=== PATIENT | male | born 1945 | race Hispanic/Latino ===

== ENCOUNTER 2016-11-24 06:48 | Day surgery (SDC) | payer MEDICARE, OTHER ==
[2016-11-15 10:31] VITALS: BMI 27.5
--- NOTE | 2016-11-23 23:19 | HP ---
REASON FOR ADMISSION: Left heart cath, possible angioplasty. BRIEF CLINICAL HISTORY: This is a 71-year-old male with a past medical history significant for chronic atrial fibrillation, hypertension, chronic leg edema, possible prostate CA, underwent stress test that shows apical ischemia, so patient is scheduled for elective cardiac cath, possible angioplasty. PAST MEDICAL HISTORY: Significant for chronic atrial fibrillation, lymphedema, and prostate CA, had underwent biopsy. RECENT CARDIAC WORKUP: As follows; 1. The patient had a stress test 08/31/2016 that is Myoview stress test. Exercise duration was 4 minutes and 23 seconds on the treadmill and nuclear scan was read as abnormal stress myocardial perfusion study, reversible small apical distal lateral defect suspicious for ischemia, ejection fraction 70%. When compared from the previous study 12/27/2012, the defect appears new. 2. The patient underwent echocardiography dated 08/31/2016 that showed no mitral valve prolapse, no IHSS. No thrombus. No vegetation. Mild LVH. Ejection fraction 57%. Mild mitral regurgitation, trace tricuspid regurgitation, small pericardial effusion. CURRENT MEDICATIONS: The patient is taking metoprolol succinate 25 mg b.i.d., Colace 100 b.i.d, Pradaxa 150 b.i.d. last dose 11/16/2016, calcium polycarbophil that is a fiber tablet 2 tablets daily. ALLERGIES: NO KNOWN DRUG ALLERGIES. REVIEW OF SYSTEMS: As per HPI. PHYSICAL EXAMINATION: VITAL SIGNS: Height of the patient is 6 feet, weight of the patient is 203 pounds, body mass index is 30 kg/m2. Temperature afebrile, heart rate 80 and blood pressure 120/70. HEENT: PERRLA. Extraocular muscles intact. NECK: Supple. No carotid bruits or thyromegaly. CHEST: Clear to auscultation. HEART: S1 and S2 regular. ABDOMEN: Soft. EXTREMITIES: Clubbing and cyanosis negative. LABORATORY DATA: Blood workup pending. IMPRESSION: Abnormal stress test, chronic atrial fibrillation, apical distal ischemia and prostate carcinoma, may need surgery. RECOMMENDATIONS: We will get blood work up. Risks, benefit and alternatives discuss with patient, patient agreed. We will procedure for cardiac catheterization. Patient is off Pradaxa for more then 3 days. Further recommendations after cardiac catheterization. Discussed bernice Gaines if the patient needs a stent, we will put drug-coated stent and can patient can come off after 3-6 month for prostate surgery. We will follow with you. Thank your Dr. Gaines for providing the opportunity in taking care of the patient, Christiano Sifuentes. Volodymyr Melissa MD
[2016-11-24 07:34] LABS: BASO # 0.01 K/mm3 (0.0-2.0); BASO % 0.2 % (0.0-3.0); EOS # 0.3 (0.0-0.7); GRAN # 4.17 (1.4-6.5); GRAN % 66.9 % (50.0-68.0); HEMATOCRIT 39.1 % (42.0-52.0); LYMPH # 1.1 (1.2-3.4); LYMPH % 17.4 % (22.0-35.0); MEAN CELL VOLUME 95.1 fl (80.0-105.0); MEAN CORPUSCULAR HEMOGLOBIN 33.8 pg (25.0-35.0); MEAN CORPUSCULAR HGB CONC 35.5 g/dl (31.0-37.0); MONO # 0.7 (0.1-0.6); MONO % 10.5 % (1.0-6.0); RED CELL DISTRIBUTION WIDTH 12.9 % (11.5-14.5); WHITE BLOOD COUNT 6.2 10^3/ul (4.5-11.0)
[2016-11-24] MEDS ORDERED: Lidocaine 2% Inj (20ml) ONE (07:40)
[2016-11-24] MEDS ORDERED: Nitroglycerin 50mg in D5W 50 MG/250 ML BOTTLE IV ONE (07:41)
[2016-11-24 07:44] LABS: BLOOD UREA NITROGEN 10 mg/dL (7-21); CALCIUM 9.2 mg/dL (8.4-10.5); CARBON DIOXIDE 28 mmol/L (21-33); CHLORIDE 102 mmol/L (98-107); CHOLESTEROL 155 mg/dL (130-200); GFR AFRICAN-AMERICAN > 60; GLUCOSE,RANDOM 119 mg/dL (70-110); POTASSIUM 4.3 mmol/L (3.6-5.0); SODIUM 139 mmol/L (132-148)
[2016-11-24 07:45] LABS: INR 1.04 (0.93-1.08); PARTIAL THROMBOPLASTIN TIME 40.9 Seconds (23.7-30.8)
[2016-11-24] MEDS ORDERED: Phenylephrine 10 mg/ml Inj ONE (07:50)
[2016-11-24 07:54] VITALS: RESP 18
[2016-11-24] MEDS ORDERED: Midazolam 2 MG/2 ML VIAL ONE (08:52)
[2016-11-24] MEDS ORDERED: Bacitracin 500 Units/gm Oint Foilpak UD TOP ONE (09:42)
[2016-11-24] MEDS ORDERED: Sodium Chloride 0.9% 1,000 ML IV SCH (09:45)
[2016-11-24 10:08] VITALS: TEMP 97.7
[2016-11-24 10:40] VITALS: O2SAT 97
--- NOTE | 2016-11-24 10:57 | CARD ---
APPROVED REPORT EKG Measurement Heart [id number] <Conclusion> Atrial fibrillation with a competing junctional pacemaker Abnormal ECG
[2016-11-24] MEDS ORDERED: Bacitracin 500 Units/gm Oint Foilpak UD ONE (11:53)
[2016-11-24 12:08] VITALS: BP 134/62; PULSE 78
--- NOTE | 2016-11-24 15:25 | CARD ---
APPROVED REPORT Procedure(s) performed: Left Heart Catheterization HISTORY The patient is a 71 year-old male with a history of : most recent EF: 70%. (EF Method: RADIONUCLIDE), peripheral vascular disease, tobacco history() : The patient is a former smoker , hypertension , Hx of ch A Fib on Pradaxa, Hx of laryngeal Ca S/p surgery and tracheostomy and now has had an abnormal stresstest as a pre-op for possoible prostate surgery.. INDICATION The indication(s) include : positive stress test. CASE TECHNIQUE The patient was brought electively to the Cardiac Catheterization Laboratory in a fasting state and was prepped and draped in a sterile manner. The left wrist was infiltrated with 2% Lidocaine subcutaneous anesthesia. A 6 Fr Glidesheath (Radial) sheath was inserted into the left radial artery without difficulty. Coronary angiography was performed using coronary diagnostic catheters. The left coronary system was accessed and visualized with a Diagnostic ,5 Fr JL 3.5 catheter. The right coronary system was accessed and visualized with a Diagnostic ,5 Fr AL 1 catheter. The left ventricle was accessed and visualized with a 5 Fr Pigtail 145 (Angled) catheter. Left ventriculogram was performed in ERNST projection. Closure device was deployed with a Fr TR Band (Large) without any complications. The patient tolerated the procedure well and there were no complications associated with the procedure. Vessel Analysis The patient's coronary anatomy is co-dominant. The left main coronary artery is a large size vessel with diffuse calcification noted throughout this vessel and without significant stenosis. There is a 10-20% stenosis in the distal segment. The left main bifurcates to the left anterior descending and circumflex. The left anterior descending artery is a medium size vessel with diffuse calcification noted throughout this vessel and without significant stenosis. The first diagonal branch is a small size vessel with diffuse calcification noted throughout this vessel and without significant stenosis. The second diagonal branch is a medium size vessel with diffuse calcification noted throughout this vessel and without significant stenosis. The circumflex artery is a medium size vessel with diffuse calcification noted throughout this vessel and without significant stenosis. The first obtuse marginal branch is a medium size vessel with diffuse calcification noted throughout this vessel and without significant stenosis. The second obtuse marginal branch is a medium size vessel with diffuse calcification noted throughout this vessel and without significant stenosis. The third obtuse marginal branch is a small size vessel with diffuse calcification noted throughout this vessel and without significant stenosis. The left posterior descending artery is a small size vessel with diffuse calcification noted throughout this vessel and without significant stenosis. The right coronary artery is a large size vessel with diffuse calcification noted throughout this vessel and without significant stenosis. There is a 30-40% stenosis in the proximal segment. 40 -50% stenosis in mid segment. The right posterior descending artery is a medium size vessel with diffuse calcification noted throughout this vessel and without significant stenosis. There is a 55% stenosis in the mid segment. Left Ventricle The left ventricle is Borderline enlarged in size with Normal contractility. There was no cardiomyopathy. The left ventricular ejection fraction is estimated to be 55%. The left ventricular end diastolic pressure is 20-25 mmHg. There was no gradient across the aortic valve upon pullback. Conclusion Non Obstructive CAD limited to Mid R PDA 55% stenosis Preserved LV FX. EF-55%, EDp-20-25% with respiratory variation. Off note: it is important to mention Pleural Plaque noted in both side of lungs field and Diaphragmatic surface c/w possible previous asbestos exposure. Recommendations Aggressive Medical TherapyCardiac Risk Reduction Program Weight Loss Reduction Program Resume Pradaxa from tomorrow. Pt is cleared from Cardiology point of View to go for prostate surgery when needed. Cc; Diya manjarrez / diya.
== END 2016-11-24 13:30 | disposition home or self-care (01) ==
LOC: CATH 06:48
PROVIDERS: ATTEND Internal Medicine Cardiovascular Disease
DX: I25.10 Atherosclerotic heart disease of native coronary artery without angina pectoris (principal); Z01.818 Encounter for other preprocedural examination; C61 Malignant neoplasm of prostate; I10 Essential (primary) hypertension; I48.2 Chronic atrial fibrillation; I89.0 Lymphedema, not elsewhere classified; I73.9 Peripheral vascular disease, unspecified; Z85.21 Personal history of malignant neoplasm of larynx; Z87.891 Personal history of nicotine dependence
CPT/HCPCS: 36415; 80048; 80061; 85025; 85610; 85730; 86850; 86900; 93005; 93458; 99152; C1769; C1887 ×2; J1644 ×2; J2250; J3010; J7040; Q9967

== ENCOUNTER 2017-12-05 12:32 | Emergency (ER) | payer MEDICARE, OTHER ==
[2017-12-05 12:33] VITALS: BMI 27.5
[2017-12-05 13:29] VITALS: TEMP 97; O2SAT 98
[2017-12-05] MEDS ORDERED: Sodium Chloride 0.9% 1,000 ML IV STA (13:54)
[2017-12-05] MEDS ORDERED: Iohexol 240 (50 ml) ONE (14:17)
--- NOTE | 2017-12-05 14:21 | ED PDOC ---
Arrival/HPI - General Chief Complaint: Abdominal Pain Time Seen by Provider: 12/05/17 12:54 Historian: Patient, Family - History of Present Illness Narrative History of Present Illness (Text): 72y/o M w/ h/o HTN & A-Fib(formerly on Pradaxa) comes to ED for evaluation of changes in bowel movement for 1 week. Per patient's , patient has had watery fecal matter and unable to have a bowel movement. She also reports blood in the fecal matter and noting the abdomen had become distended and bloated. Per patient, he denies any fever, chills, chest pain, shortness of breath, abdominal pain, nausea, vomiting, dizziness or bruising. Of note, patient's states she stopped patient's Pradaxa for the past 2 days due to the blood per rectum. PMD: Dr. Gaines(general surgery) Symptom Onset: Gradual Symptom Course: Worsening Severity Level: Mild Context: Home Past Medical History - Provider Review Nursing Documentation Reviewed: Yes - Travel History Have you recently traveled outside [place] w/in the past 3 mons?: No - Infectious Disease Hx of Infectious Diseases: None - Tetanus Immunization Tetanus Immunization: Unknown - Cardiac Hx Pacemaker: No - Pulmonary Hx Respiratory Disorders: No - Neurological Hx Paralysis: No - HEENT Hx HEENT Disorder: No (WEARSW RX GLASSES) - Renal Hx Renal Disorder: No - Endocrine/Metabolic Hx Endocrine Disorders: No - Hematological/Oncological Hx Blood Transfusions: No Hx Blood Transfusion Reaction: No - Integumentary Hx Dermatological Disorder: Yes Hx Basal Cell Carcinoma: Yes (BASAL CELL SQUAMOUS 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 WITH RADIATION TX AND HYPERBARIC TX.) - Musculoskeletal/Rheumatological Hx Musculoskeletal Disorders: No - Psychiatric Hx Emotional Abuse: No Hx Physical Abuse: No Hx Substance Use: No - Surgical History Other/Comment: skin chantel on leg, larngectomy - Anesthesia Hx Anesthesia Reactions: No Hx Malignant Hyperthermia: No - Suicidal Assessment Feels Threatened In Home Enviroment: No Family/Social History - Physician Review Nursing Documentation Reviewed: Yes Family/Social History: No Known Family HX Smoking Status: Former Smoker Hx Alcohol Use: Yes (3-4 beers) Hx Substance Use: No Hx Substance Use Treatment: No Allergies/Home Meds Allergies/Adverse Reactions: Allergies No Known Allergies Allergy (Verified 06/11/14 09:44) Home Medications: Home Meds Medication Instructions Recorded Confirmed Dabigatran [Pradaxa] 150 mg PO BID 08/31/16 11/24/16 Metoprolol Succinate 25 mg PO BID 08/31/16 11/24/16 Calcium Polycarbophil [Fiber-Tabs] 2 cap PO DAILY 11/15/16 11/24/16 Docusate [Colace] 100 mg PO DAILY 11/15/16 11/24/16 Review of Systems - Physician Review All systems were reviewed & negative as marked: Yes - Review of Systems Constitutional: absent: Fevers Respiratory: absent: SOB Cardiovascular: absent: Chest Pain, Palpitations Gastrointestinal: Stool Changes (loose watery fecal matter), Other (blood per rectum). absent: Abdominal Pain, Nausea, Vomiting, Appetite Changes, Food Intolerance Genitourinary Male: absent: Dysuria, Frequency, Hematuria Skin: absent: Rash Neurological: absent: Headache, Dizziness Physical Exam Vital Signs Temp Pulse Resp BP Pulse Ox 12/05/17 13:28 97.0 F L 75 20 104/58 L 98 Temperature: Afebrile Blood Pressure: Normal Pulse: Regular Respiratory Rate: Normal Appearance: Positive for: Well-Appearing, Non-Toxic, Comfortable Pain Distress: None Mental Status: Positive for: Alert and Oriented X 3 - Systems Exam Head: Present: Atraumatic, Normocephalic Pupils: Present: PERRL Extroacular Muscles: Present: EOMI Conjunctiva: Present: Normal Mouth: Present: Moist Mucous Membranes Neck: Present: Normal Range of Motion, Other (patient s/p laryngectomy and currently has tracheostomy ) Respiratory/Chest: Present: Clear to Auscultation, Good Air Exchange. No: Respiratory Distress, Accessory Muscle Use Cardiovascular: Present: Regular Rate and Rhythm, Normal S1, S2. No: Murmurs Abdomen: Present: Distention, Other (firmness noted to left lower quadrant). No : Tenderness, Normal Bowel Sounds (+ hyperactive bowel sounds), Peritoneal Signs Back: Present: Normal Inspection Upper Extremity: Present: Normal Inspection, Erythema, Other (no ecchymosis to extremities noted). No: Cyanosis, Edema Lower Extremity: Present: Normal Inspection, Normal ROM, Other (no ecchymosis noted). No: Edema Neurological: Present: GCS=15, CN II-XII Intact, Speech Normal Skin: Present: Warm, Dry, Normal Color. No: Rashes Psychiatric: Present: Alert, Oriented x 3, Normal Insight, Normal Concentration Medical Decision Making ED Course and Treatment: Impression: 72yo male with hx of A-Fib, hypertension, comes w/ c/o changes in bowel movement and blood in stool x 2 days Differential Diagnosis included but are not limited to: Large bowel obstruction Volvulus Colitis Strangulated/incarcerated hernia Plan: -- Labs -- CT Abdomen/Pelvis w/ PO & IV contrast -- Chest X-ray -- Urinalysis -- IV Fluids 1L -- Reassess and disposition Prior Visits: Notes and results from previous visits were reviewed. Patient was last seen in this Emergency room on 06/11/14 due to elevated blood pressure and was discharged home. Progress Notes: 12/05/17 18:15 Labs reviewed with no outstanding results. Dr. Gaines at the bedside updating patient on high likelihood of obstruction and states Dr. Smallwood(GI) will be performing a colonscopy on the patient the following day. Patient is amenable to staying for admission. - Lab Interpretations Lab Results: 12/05/17 14:20 12/05/17 14:20 Lab Results 12/05/17 14:20: Sodium 137, Chloride 100, Potassium 4.3, Carbon Dioxide 27, Anion Gap 14, BUN 17, Creatinine 0.8, Est GFR ( Amer) > 60, Est GFR (Non- Af Amer) > 60, Random Glucose 92, Calcium 9.1, Total Bilirubin 0.5, AST 27, ALT 21, Alkaline Phosphatase 105, Troponin I < 0.01, Total Protein 6.9, Albumin 3.9 , Globulin 3.0, Albumin/Globulin Ratio 1.3, Lipase 56 12/05/17 14:20: pO2 30, VBG pH 7.31 L, VBG pCO2 61.0 H, VBG HCO3 30.7 H, VBG Total CO2 32.6 H, VBG O2 Sat (Calc) 54.5, VBG Base Excess 2.8 H, VBG Potassium 4.5, Sodium 137.0, Chloride 103.0, Glucose 93, Lactate 1.7, FiO2 21.0, Venous Blood Potassium 4.5 12/05/17 14:20: PT 12.0, INR 1.05, APTT 48.3 H 12/05/17 14:20: WBC 6.5, RBC 3.64, Hgb 11.9 L, Hct 34.5 L, MCV 94.8, MCH 32.7, MCHC 34.5, RDW 14.2, Plt Count 238, MPV 9.0, Gran % 65.3, Lymph % (Auto) 24.3, [place] % (Auto) 8.2 H, Eos % (Auto) 2.0, Baso % (Auto) 0.2, Gran # 4.25, Lymph # ( Auto) 1.6, [place] # (Auto) 0.5, Eos # (Auto) 0.1, Baso # (Auto) 0.01, ESR 59 H - RAD Interpretation Narrative RAD Interpretations (Text): 12/05/17 15:31 Chest X-ray IMPRESSION: Moderate cardiomegaly and mild pulmonary venous congestion. No acute findings. 12/05/17 18:13 CT Abdomen/Pelvis IMPRESSION: Thick-walled urinary bladder. Correlate clinically for cystitis. Recommend correlation with urinalysis. The appendix is not identified. No secondary signs of acute appendicitis. Sub cm mesenteric lymph nodes, nonspecific. 10 mm nonspecific lymph node near the aleksandr hepatis adjacent to the pancreas. Indeterminate 1.3 x 2.0 cm left adrenal gland nodule. Heterogeneous enlarged prostate gland. Recommend correlation with PSA. Evidence pericardial calcification. Recommend correlation with cardiac status including echocardiogram if indicated. Additional findings as above Radiology Orders: 12/05/17 13:52 ABD PELVIS PO & IV CONTRAST [CT] Stat CHEST PORTABLE [RAD] Stat - EKG Interpretation EKG Interpretation (Text): 12/05/17 15:[address] elevations QT interval normal Interpreted by ED Physician: Yes Type: 12 lead EKG - Medication Orders Current Medication Orders: Discontinued Medications Sodium Chloride (Sodium Chloride 0.9%) 1,000 mls @ 999 mls/hr IV .Q1H1M STA Stop: 12/05/17 14:54 Last Admin: 12/05/17 15:04 Dose: 999 mls/hr eMAR Start Stop Document 12/05/17 15:04 MR (Rec: 12/05/17 15:06 MR [id number]) Intravenous Solution Start Date 12/05/17 Start Time 14:40 End Date 12/05/17 End time 15:40 Total Infusion Time 60 - Scribe Statement The provider has reviewed the documentation as recorded by the Collins Reece Provider Stephanibe Attestation: All medical record entries made by the Stephanibmarco were at my direction and personally dictated by me. I have reviewed the chart and agree that the record accurately reflects my personal performance of the history, physical exam, medical decision making, and the department course for this patient. I have also personally directed, reviewed, and agree with the discharge instructions and disposition. Disposition/Present on Arrival - Present on Arrival Any Indicators Present on Arrival: No History of DVT/PE: No History of Uncontrolled Diabetes: No Urinary Catheter: No History of Decub. Ulcer: No History Surgical Site Infection Following: None - Disposition Have Diagnosis and Disposition been Completed?: Yes Diagnosis: Volvulus Disposition: HOSPITALIZED Disposition Time: 18:15 Patient Plan: Admission Patient Problems: Current Active Problems Problem Status Onset Volvulus Acute Condition: STABLE Referrals: Tavo Gaines MD [Primary Care Provider] - Follow up with primary Forms: [employer] ([place])
[2017-12-05 14:26] LABS: VENOUS BLOOD GAS BASE EXCESS 2.8 mmol/L (0.0-2.0); VENOUS BLOOD GAS PO2 30 mm/Hg (30-55); VENOUS BLOOD PH 7.31 (7.32-7.43)
[2017-12-05 14:27] LABS: BASO # 0.01 K/mm3 (0.0-2.0); BASO % 0.2 % (0.0-3.0); EOS # 0.1 (0.0-0.7); GRAN # 4.25 (1.4-6.5); GRAN % 65.3 % (50.0-68.0); HEMOGLOBIN 11.9 g/dL (14.0-18.0); LYMPH # 1.6 (1.2-3.4); LYMPH % 24.3 % (22.0-35.0); MEAN CELL VOLUME 94.8 fl (80.0-105.0); MEAN CORPUSCULAR HEMOGLOBIN 32.7 pg (25.0-35.0); MEAN CORPUSCULAR HGB CONC 34.5 g/dl (31.0-37.0); MONO # 0.5 (0.1-0.6); MONO % 8.2 % (1.0-6.0); RBC 3.64 10^6/uL (3.5-6.1); RED CELL DISTRIBUTION WIDTH 14.2 % (11.5-14.5); WHITE BLOOD COUNT 6.5 10^3/ul (4.5-11.0)
[2017-12-05 14:37] LABS: ALB/GLOB RATIO 1.3 (1.1-1.8); ALBUMIN 3.9 g/dL (3.0-4.8); ALT/SGPT 21 U/L (7-56); AST/SGOT 27 U/L (17-59); BLOOD UREA NITROGEN 17 mg/dL (7-21); CALCIUM 9.1 mg/dL (8.4-10.5); GFR NON-AFRICAN AMERICAN > 60; LIPASE 56 U/L (23-300)
[2017-12-05 14:39] LABS: INR 1.05; PARTIAL THROMBOPLASTIN TIME 48.3 Seconds (25.1-36.5)
[2017-12-05 14:48] LABS: TROPONIN I < 0.01 ng/mL
--- NOTE | 2017-12-05 15:13 | RAD ---
Date of service: 12/05/2017 HISTORY: sob COMPARISON: 05/04/2017. FINDINGS: LUNGS: The lungs are well inflated. There is mild pulmonary venous congestion. No focal consolidation. PLEURA: No significant pleural effusion identified, no pneumothorax apparent. CARDIOVASCULAR: There is moderate cardiomegaly. OSSEOUS STRUCTURES: No significant abnormalities. VISUALIZED UPPER ABDOMEN: Normal. OTHER FINDINGS: None. IMPRESSION: Moderate cardiomegaly and mild pulmonary venous congestion. No acute findings.
[2017-12-05] MEDS ORDERED: Iodixanol 320 mg/ml 150 ml Bottle IV ONE (16:47)
--- NOTE | 2017-12-05 18:01 | CT ---
PROCEDURE: CT Abdomen and Pelvis with oral and IV contrast. HISTORY: abdominal pain COMPARISON: None available TECHNIQUE: Contiguous axial images of the abdomen and pelvis. Oral and IV contrast was administered. Coronal and Sagittal reformats generated. Contrast dose: 147 cc Visipaque 320 Radiation dose: Total exam DLP = 865.27 mGy-cm. This CT exam was performed using one or more of the following dose reduction techniques: Automated exposure control, adjustment of the mA and/or kV according to patient size, and/or use of iterative reconstruction technique. FINDINGS: LOWER THORAX: No visible consolidation, pleural effusion, or pneumothorax. Evidence pericardial calcification. LIVER: Unremarkable. GALLBLADDER AND BILE DUCTS: Unremarkable. PANCREAS: Atrophy. SPLEEN: Unremarkable. ADRENALS: Indeterminate 1.3 x 2.0 cm left adrenal gland nodule. The right adrenal gland appears unremarkable. KIDNEYS AND URETERS: The kidneys enhance symmetrically. No hydronephrosis or obstructing renal calculus. BLADDER: Thick-walled incompletely distended urinary bladder limits evaluation. REPRODUCTIVE: Heterogeneous enlarged prostate containing calcifications. APPENDIX: The appendix is not identified. No secondary signs of acute appendicitis. BOWEL: The stomach is nondistended. The bowel loops appear within normal limits of caliber without evidence of intestinal obstruction. PERITONEUM: No significant free fluid. No definite free air. LYMPH NODES: Sub cm mesenteric lymph nodes, nonspecific. 10 mm nonspecific lymph node near the aleksandr hepatis adjacent to the pancreas. VASCULATURE: No aortic aneurysm. BONES: Osseous demineralization. Degenerative changes. OTHER FINDINGS: None. IMPRESSION: Thick-walled urinary bladder. Correlate clinically for cystitis. Recommend correlation with urinalysis. The appendix is not identified. No secondary signs of acute appendicitis. Sub cm mesenteric lymph nodes, nonspecific. 10 mm nonspecific lymph node near the aleksandr hepatis adjacent to the pancreas. Indeterminate 1.3 x 2.0 cm left adrenal gland nodule. Heterogeneous enlarged prostate gland. Recommend correlation with PSA. Evidence pericardial calcification. Recommend correlation with cardiac status including echocardiogram if indicated. Additional findings as above
[2017-12-05] MEDS ORDERED: Lactated Ringer's 1,000 ML IV SCH (18:45)
--- NOTE | 2017-12-05 20:27 | CARD ---
APPROVED REPORT Date of service: 12/05/2017 EKG Measurement Heart [id number] <Conclusion> Atrial fibrillation Abnormal ECG
--- NOTE | 2017-12-05 21:00 | CP.PCM.HP ---
History of Present Illness - History of Present Illness History of Present Illness: General Surgery Dr. Gaines 72 y/o M w/ PMHx of porphyria, BPH, HTN, CAD (Cath 2016) presents to the ED w/ 2mons of irregular bowel movements. Pt began having BM Q3days, which is abnormal for him. He took milk of magnesia, Colace, fiber capsules and Magcitrate w/ little improvement of symptoms. Approximately 3wks ago, pt stopped having normal stools and was only able to produce painless, pasty-brown , small stools. 2wks ago, pt saw blood in the stools and stopped his Pradaxa. The bleeding stopped on Nov 29. Pt reports associated bloating and distention. Pt has no abd pain or any complaints of discomfort other than his bloating. Pt denies any CP, SOB, f/c, n/v. PMHx: see above, basal cell ca Meds: reviewed in chart NKDA PSHx: Total Laryngectomy (1997), LLE skin graft (1999) SHx: former tobacco; 2-3 beers per day; denies drug use FHx: noncontributory Present on Admission - Present on Admission Any Indicators Present on Admission: No Review of Systems - Review of Systems All systems: reviewed and no additional remarkable complaints except (see HPI) Past Patient History - Infectious Disease Hx of Infectious Diseases: None - Tetanus Immunizations Tetanus Immunization: Unknown - Past Social History Smoking Status: Former Smoker - CARDIAC Hx Pacemaker: No - PULMONARY Hx Respiratory Disorders: No - NEUROLOGICAL Hx Paralysis: No - HEENT Hx HEENT Problems: No (WEARSW RX GLASSES) - RENAL Hx Chronic Kidney Disease: No - ENDOCRINE/METABOLIC Hx Endocrine Disorders: No - HEMATOLOGICAL/ONCOLOGICAL Hx Blood Transfusions: No Hx Blood Transfusion Reaction: No - INTEGUMENTARY Hx Dermatological Problems: Yes Hx Basil Cell: Yes (BASAL CELL SQUAMOUS 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 WITH RADIATION TX AND HYPERBARIC TX.) - MUSCULOSKELETAL/RHEUMATOLOGICAL Hx Musculoskeletal Disorders: No - PSYCHIATRIC Hx Emotional Abuse: No Hx Physical Abuse: No Hx Substance Use: No - SURGICAL HISTORY Other/Comment: skin chantel on leg, larngectomy - ANESTHESIA Hx Anesthesia Reactions: No Hx Malignant Hyperthermia: No Meds Allergies/Adverse Reactions: Allergies Allergy/AdvReac Type Severity Reaction Status Date / Time No Known Allergies Allergy Verified 03/18/15 09:44 Physical Exam - Constitutional Appears: Non-toxic, No Acute Distress - Head Exam Head Exam: NORMAL INSPECTION - Eye Exam Eye Exam: Normal appearance - ENT Exam ENT Exam: Mucous Membranes Moist - Neck Exam Additional comments: trach in place w/ speech valve - Respiratory Exam Respiratory Exam: NORMAL BREATHING PATTERN. absent: Accessory Muscle Use, Respiratory Distress - Cardiovascular Exam Cardiovascular Exam: REGULAR RHYTHM. absent: Bradycardia, Tachycardia - GI/Abdominal Exam GI & Abdominal Exam: Distended (moderate), Soft. absent: Guarding, Rebound, Rigid, Tenderness Additional comments: tympanic - Extremities Exam Extremities exam: Positive for: normal inspection - Neurological Exam Neurological exam: Alert, Oriented x3 - Psychiatric Exam Psychiatric exam: Normal Affect, Normal Mood - Skin Skin Exam: Dry, Intact, Normal Color, Warm Results - Vital Signs Recent Vital Signs: Last Vital Signs Temp 97.0 F L 12/05/17 13:28 Pulse 75 12/05/17 13:28 Resp 20 12/05/17 13:28 BP 104/58 L 12/05/17 13:28 Pulse Ox 98 12/05/17 13:28 - Labs Result Diagrams: 12/05/17 14:20 12/05/17 14:20 - Imaging and Cardiology CT scan - abdomen Status: Image reviewed by me, Report reviewed by me Assessment & Plan - Assessment and Plan (Free Text) Assessment: 72 y/o M w/ abd distention and LBO 2/2 sigmoid volvulus - NPO/IVF - monitor bowel fxn - serial abd exams - GI consult - Cardiology consult - strict Is&Os - hold PO meds - encourage OOB to chair/Amb/IS use - GI/DVT PPx: Pep/SCDs Pt discussed w/ Dr. Eder Guadarrama DO PGY3
[2017-12-05 22:57] VITALS: BP 105/60; PULSE 98
[2017-12-05 22:58] VITALS: RESP 18
--- NOTE | 2017-12-06 07:15 | CP.PCM.PN ---
Subjective - Date & Time of Evaluation Date of Evaluation: 12/05/17 Time of Evaluation: 21:00 - Subjective Subjective: See Progress note Pt to be discharged Objective - Vital Signs/Intake and Output Vital Signs (last 24 hours): Temp Pulse Resp BP Pulse Ox 97.0 F L 98 H 18 105/60 98 12/05/17 13:28 12/05/17 22:15 12/05/17 22:57 12/05/17 22:15 12/05/17 22:57 - Labs Labs: 12/05/17 14:20 12/05/17 14:20 PT 12.0 SECONDS (9.4-12.5) 12/05/17 14:20 INR 1.05 12/05/17 14:20 APTT 48.3 Seconds (25.1-36.5) H 12/05/17 14:20 Assessment and Plan - Assessment and Plan (Free Text) Assessment: Dr Powers feels the severe constipation(Bleeding w Pradaxa) is Chronic constipation-IBS and the patient might have an underlying intra luminal lesion. He recommends extensive bowel prep (Miralax TID and Amitiza 24 BID) with exaM ON 12/08/2017 We both feel he probably doesnt have a significant Sigmoid Volvulus and he can be discharged without further InPt Rx now The pt and are agreeable to this plan and will prep for Colonoscopy Diya Gaines MD FACS
== END 2017-12-05 22:57 | disposition home or self-care (01) ==
LOC: ED 12:32 → UNDOADMIN 18:12 → ERH 18:12 → ED 22:57
DX: R10.9 Unspecified abdominal pain (principal); K56.2 Volvulus; I10 Essential (primary) hypertension; I25.10 Atherosclerotic heart disease of native coronary artery without angina pectoris; Z87.891 Personal history of nicotine dependence
CPT/HCPCS: 71045; 74177; 80053; 82803; 83690; 84484; 85025; 85610; 85651; 85730; 87040; 93005; 96360; 99283; J7030; Q9966; Q9967

== ENCOUNTER 2017-12-08 12:58 | Day surgery (SDC) | payer MEDICARE, OTHER ==
[2017-12-08] MEDS ORDERED: Propofol 10 mg/ml Inj (20 ML) ONE (15:00)
[2017-12-08] MEDS ORDERED: Lactated Ringer's 1,000 ML IV SCH (15:45)
[2017-12-08 16:11] VITALS: TEMP 98
[2017-12-08 17:00] VITALS: O2SAT 97
[2017-12-08 17:50] VITALS: BP 138/70; PULSE 76; RESP 18
== END 2017-12-08 17:51 | disposition home or self-care (01) ==
LOC: ENDO 12:58
PROVIDERS: ATTEND Internal Medicine Gastroenterology
DX: K60.2 Anal fissure, unspecified (principal); K63.5 Polyp of colon; K62.5 Hemorrhage of anus and rectum; K64.8 Other hemorrhoids; K64.4 Residual hemorrhoidal skin tags
CPT/HCPCS: 45380; 88305; J2001; J2704; J7040; J7120

== ENCOUNTER 2018-04-12 07:13 | Outpatient (CLI) | payer MEDICARE, OTHER | END 2018-04-12 07:14 | disposition home or self-care (01) | LOC: PAT 07:13 ==

== ENCOUNTER 2018-04-26 08:04 | Day surgery (SDC) | payer MEDICARE, OTHER ==
[2018-04-26 09:11] VITALS: BMI 27.5
[2018-04-26 09:18] LABS: INR 1.18; PARTIAL THROMBOPLASTIN TIME 88.4 Seconds (26.9-38.3); PROTHROMBIN TIME 13.3 SECONDS (9.4-12.5)
[2018-04-26] MEDS ORDERED: Lidocaine 1% w Epi 1:100,000 Inj ONE (10:00)
[2018-04-26] MEDS ORDERED: Bupivacaine 0.5% 50 ML IJ ONE (10:00)
[2018-04-26] MEDS ORDERED: Liquid Adhesive TOP ONE (10:00)
[2018-04-26] MEDS ORDERED: Lidocaine 1% Inj (20ml) ONE (10:00)
[2018-04-26] MEDS ORDERED: Propofol 10 mg/ml Inj (20 ML) ONE (10:01)
[2018-04-26] MEDS ORDERED: Bupivacaine Liposomal Inj 20 ml ONE (10:10)
[2018-04-26] MEDS ORDERED: Collagen Hemostat Powder ONE (10:42)
[2018-04-26] MEDS ORDERED: Bupivacaine 0.25% 50 ML INJ IJ ONE (10:42)
--- NOTE | 2018-04-26 11:23 | PCM.SURG1 ---
Surgeon's Initial Post Op Note - Surgeon's Notes Surgeon: Dr. Gaines Abrasive Sawyer: Ana PGY4 Type of Anesthesia: General Endo, Local Anesthesia Administered By: Braxton Pre-Operative Diagnosis: Basal Cell Carcinoma LLE Operative Findings: [id number] lesion on anterior LLE Post-Operative Diagnosis: same Operation Performed: Electrofulgarization of LLE basal cell CA w. skin bx and tibia bx Specimen/Specimens Removed: 1. Skin/Tumor. 2. Tibia Estimated Blood Loss: EBL {In ML}: 5 Blood Products Given: N/A Drains Used: No Drains Post-Op Condition: Good Date of Surgery/Procedure: 04/26/18 Time of Surgery/Procedure: 11:23
[2018-04-26] MEDS ORDERED: HYDROmorphone 0.5 mg/0.5 ml ISec IVP PRN (11:28)
[2018-04-26] MEDS ORDERED: Lactated Ringer's 1,000 ML IV SCH (11:30)
[2018-04-26 12:40] VITALS: BP 145/69; PULSE 81; RESP 22; TEMP 97.8; O2SAT 98
[2018-04-26] MEDS ORDERED: Acetylcysteine 20% Inhal Soln (4ml) IH SCH (14:00)
--- NOTE | 2018-05-09 18:53 | OP ---
PROCEDURE DATE: 04/26/2018 SURGEON: Tavo Gaines MD CONTACT CENTRE SUPERVISOR: Jim Perez DO, PGY 4 HITTING COACH: Chadwick Carr MD ANESTHESIA: General - tracheal - EXPAREL -bupivacaine 25 mL. 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 Rule out tibial bone involvement. PROCEDURES PERFORMED: 1. Wide excision of a 10 x 15 cm tumor of the left lower extremity extending from skin, fat, muscle and possibly into bone. 2. Excision of the tumor. 3. Electrofulguration of the tumor base. 4. Biopsy of the tibial bone. OPERATIVE INDICATIONS: The patient is a 73-year-old male who has had a greater than 15-year history of a recurring basal cell carcinoma on his left lower extremity that has been treated with every modality known and has had the tumor go into remission only to recur over the past year. Complicating the issue was chronic lymphedema due to bony injury and lymphatic interference and the fact that the last time the patient had treatment, he utilized a very expensive chemotherapy Erivedge and the tumor went into complete remission, biopsy confirmed but the patient developed severe muscle contractions that was very incapacitating and lost hair throughout his body which has since grown back. In addition to the hair growing back, the tumor grew back and now he is bleeding mainly because the patient takes a factor 10 inhibitor for atrial fibrillation and has had several major bleeds. Recommendation for removal of the lesion is made at this time as no other modalities to treatment are available are acceptable to the patient and he has received all the radiation that he possibly can to this area. Risks, benefits, alternatives and their anticipated outcomes were fully discussed and he and his both signed the informed consent for anesthesia and for removal of the tumor. The procedure is anticipated to be temporizing and hopefully will buy him some significant time before the tumor can grow enough to bleed again. OPERATIVE NOTE: The patient was brought to the operating room from the holding area. He is identified by his wrist band, undergoes time-out procedure and is placed on the table in a supine manner. 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 In the trachea is a small TEP prosthesis valve that allows him to phonate with air up the esophagus and out his mouth and allowing him to speak. The anesthesiologist had preoxygenated the patient and placed the endotracheal tube into the trachea and secured it in place at this point. While this is being done, the left lower extremity is prepped with Betadine and the patient is then aseptically draped. Infiltration completely surrounding the lesion and underneath it with the EXPAREL bupivacaine solution is employed and good anesthetic take is made. Multiple segments of the tumor are removed and submitted from different positions and so marked on the pathology. Cultures taken aerobically and anaerobically at this point which eventually returned as Morganella and MRSA. The lesion is now electrofulgurated completely with high-energy cautery until the lesion is completely removed under direct vision and at the very end the lesion is found to be an immediate proximity to the tibia and a small portion of bone is removed (osteectomy) and submitted to rule out osteomyelitis or tumor invasion. Grossly this does not appear to be the case. The entire lesion was now scrubbed with a scrub brush and saline solution and hemostasis was once more contained and Avitene is placed over the entire wound with an Adaptic dressing and multiple layers of dry gauze, Kerlix, wrap, Alfredo bandage and Coban. The patient was then awakened, extubated and transported to the recovery room in a satisfactory condition. Sponge, instrument and suture count were verified as correct at the end of the procedure. Estimated blood loss during this procedure was less than 40 mL of blood. This dictation will be electronically signed without being read. The registered nurse surgical services was present throughout the entire procedure and was extremely helpful in the removal of the tumor and controlling hemostasis. Tavo Gaines MD
== END 2018-04-26 14:10 | disposition home or self-care (01) ==
LOC: SDS 08:04
PROVIDERS: ATTEND Surgery
DX: C44.719 Basal cell carcinoma of skin of left lower limb, including hip (principal); I10 Essential (primary) hypertension; I48.91 Unspecified atrial fibrillation; I89.0 Lymphedema, not elsewhere classified; B95.62 Methicillin resistant Staphylococcus aureus infection as the cause of diseases classified elsewhere; Z87.891 Personal history of nicotine dependence; Z85.21 Personal history of malignant neoplasm of larynx; Z79.02 Long term (current) use of antithrombotics/antiplatelets
CPT/HCPCS: 11606; 20245; 36415; 85610; 85730; 87070; 87181; 88305; 88307; 88311; J0690; J1170; J2001; J2405; J2704; J2765; J3010; J7120 ×2

== ENCOUNTER 2018-06-16 08:55 | Outpatient (CLI) | payer MEDICARE, OTHER | END 2018-06-16 08:56 | disposition home or self-care (01) | LOC: LAB 08:55 ==